=== PATIENT | female | born 1985 | race Caucasian/White ===

== ENCOUNTER 2017-04-08 00:27 | Emergency (ER) | payer OTHER ==
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
[2017-04-08 01:47] VITALS: BP 126/58; PULSE 83; RESP 16; TEMP 98
== END 2017-04-08 01:58 | disposition home or self-care (01) ==
LOC: EC 00:27
DX: O9A.211 Injury, poisoning and certain other consequences of external causes complicating pregnancy, first trimester (principal); S01.81XA Laceration without foreign body of other part of head, initial encounter; O99.331 Smoking (tobacco) complicating pregnancy, first trimester; F17.200 Nicotine dependence, unspecified, uncomplicated; Z3A.10 10 weeks gestation of pregnancy; Z79.899 Other long term (current) drug therapy; X99.1XXA Assault by knife, initial encounter; Y92.008 Other place in unspecified non-institutional (private) residence as the place of occurrence of the external cause
CPT/HCPCS: 12013; 99284

== ENCOUNTER → 2017-06-28 | Outpatient (CLI) | payer OTHER ==
[2017-06-28 12:02] LABS: CH 30.5; CHCM 33.8; HCT 36.2 % (34.0-46.0); HDW 2.32; HGB 12.8 gm/dL (11.4-16.0); MCH 31.9 pg (25.0-35.0); MCHC 35.2 g/dL (31.0-37.0); MCV 90.4 fL (80.0-100.0); Mean Platelet Volume 7.8; RBC 4.01 m/uL (3.80-5.40); RDW 12.8 % (11.5-15.5); WBC 10.2 k/uL (3.8-10.6)
[2017-06-28 12:04] LABS: Glucose 125 mg/dL (74-99); Non-African American GFR(MDRD) >60 (>60 ml/min/1.73 sqM)
[2017-06-28 12:36] LABS: Hepatitis B Surface Ag Index 0.06
[2017-06-28 15:44] LABS: Treponemal Ab Non-Reactive (Non-Reactive)
[2017-06-29 05:19] LABS: Toxoplasma Antibody (IgG) <3.0 IU/mL (<7.2)
[2017-06-29 08:21] LABS: Alpha Fetoprotein 34.1 ng/mL; B-HCG (M.O.M.) 0.82; Gestational Age (days) 3; Human Chorionic Gonadotropin 12.6 IU/mL; Inhibin A (M.O.M.) 1.02; Interpretation SeeBelow; Maternal Age at EDD (Yrs) 32; Smoker Yes; Unconjugated Estriol (M.O.M.) 0.93
== END | disposition home or self-care (01) ==
LOC: LABWHC1 10:54
PROVIDERS: ATTEND Obstetrics & Gynecology
DX: Z34.82 Encounter for supervision of other normal pregnancy, second trimester (principal)
CPT/HCPCS: 36415; 82105; 82565; 82677; 82947; 84702; 85027; 86336; 86762; 86777; 86778; 86780; 86850; 86900; 86901; 87340; 87390

== ENCOUNTER 2017-10-21 18:25 | Outpatient (CLI) | payer OTHER ==
[2017-10-21 18:40] VITALS: BP 122/66; PULSE 84; TEMP 97.9
[2017-10-21 19:13] VITALS: RESP 16
[2017-10-21] MEDS ORDERED: BETAMET ACET-BETAMETH SOD PHOS 6 MG/ML VIAL IM SCH (20:15)
[2017-10-21] MEDS ORDERED: MAGNESIUM SULFATE WATER PMX IVPB STA ×2 (20:18→20:56)
[2017-10-21] MEDS ORDERED: WATER FOR INJECTION IVPB STA ×2 (20:18→20:56)
--- NOTE | 2017-10-21 20:39 | P.TRANS ---
Providers Expected date of discharge: 10/21/17 Attending physician: Cj Moeller Primary care physician: Stated None Hospital Course: Darin is a 32-year-old at 33 weeks 6 days gestation arrives to labor and delivery complaining of contractions. She spoke with me earlier in the afternoon and I advised her to go to labor and delivery immediately. She reports that she do her work and proceeded to go to her job. [employer] came to labor and delivery michael every 2-3 minutes dilated to 2 cm 80% effaced and a fibronectin was ordered. This returned a positive result and on reexamination about 60-90 minutes later she was dilated to have 80% effaced and -2 station. Teased michael every few minutes. IV has been started and a 6 g bolus of magnesium sulfate will be given with a 2 g maintenance dose started. We'll plan transfer for her to [facility] for labor. She denies rupture membranes heart tones in the 130s to 140s and are reactive. Her past medical history is otherwise unremarkable past surgical history none. ALLERGIES none. Social history is is significant for half pack per day tobacco abuse she denies alcohol or illicit drug use. Family history is nonicteric.. Her course is, K by gestational diabetes she is at A2 gestational diabetic using insulin only at night. Reason for transfer risks and benefits were discussed with patient in detail and all questions are answered for her at this time. We'll plan transfer of care and have MFM make further decisions regarding her care. Patient Condition at Discharge: Stable Plan - Transfer Summary Transfer Medications: Active Medications Generic Name Dose Route Start Last Admin Trade Name Rowena PRN Reason Stop Dose Admin Betamethasone Acet/Betameth SodPhos 12 mg 10/21/17 20:15 10/21/17 20:32 Celestone Soluspan IM 10/22/17 20:16 12 mg Q24H BORA Administration Magnesium Sulfate 6 gm/ IV 75 mls @ 25 mls/hr 10/21/17 20:18 Solution IVPB 10/21/17 22:17 ONCE STA
[2017-10-21] MEDS ORDERED: MAGNESIUM SULFATE MG 6,000 MG in SODIUM CHLORIDE 0.9% 50 ML IVPB ONE (20:49)
[2017-10-21] MEDS ORDERED: MAGNESIUM SULFATE-WATER PMX 20 GM in WATER FOR INJECTION 1 500ML.BAG IV SCH (21:00)
[2017-10-21] MEDS ORDERED: LACTATED RINGERS 1,000 ML IV SCH (21:00)
== END 2017-10-21 21:51 | disposition short-term general hospital (02) ==
LOC: FBPOP 18:25
PROVIDERS: ATTEND Obstetrics & Gynecology
DX: O60.03 Preterm labor without delivery, third trimester (principal); Z3A.33 33 weeks gestation of pregnancy; O24.414 Gestational diabetes mellitus in pregnancy, insulin controlled
CPT/HCPCS: 59025; 96361; 96365; 96366; 96372; 84112; 82731; G0463; J0702; J3475 ×2; 99215

== ENCOUNTER 2017-12-10 20:48 | Emergency (ER) | payer OTHER ==
--- NOTE | 2017-12-10 21:08 | ED ---
General Adult HPI - General Chief complaint: Chest Pain Stated complaint: chest pain Time Seen by Provider: 12/10/17 20:53 Source: patient, RN notes reviewed, old records reviewed Mode of arrival: ambulatory Limitations: no limitations - History of Present Illness Initial comments: this patient is a 32-year-old female presents emergency Department with sudden onset of substernal epigastric and chest pain for the past 30 minutes. She reports this occurred while she was walking around the grocery store and hit her suddenly. She states that she had a child approximately one month ago. She denies any other major medical history besides a hiatal hernia repair. She reports that this pain seems different than GERD. She states that it is worse with palpation over epigastric region. Patient states that she has no recent fever or chills. Denies any other abnormal symptoms. - Related Data Home Medications Medication Instructions Recorded Confirmed Vit No.124/Iron/Folic 1 tab PO DAILY 05/05/15 12/10/17 [ Vitamin Tablet] Previous Rx's Medication Instructions Recorded Ibuprofen [Motrin] 600 mg PO Q6HR PRN #60 tab 10/27/17 Acetaminophen-Codeine 300-30mg 1 tab PO Q4H PRN #15 tablet 12/11/17 [Tylenol #3] Ibuprofen [Motrin] 600 mg PO Q8HR PRN #20 tab 12/11/17 Ondansetron Odt [Zofran Odt] 4 mg PO Q8HR PRN #12 tab 12/11/17 Allergies Allergy/AdvReac Type Severity Reaction Status Date / Time No Known Allergies Allergy Verified 12/10/17 20:59 Review of Systems ROS Statement: Those systems with pertinent positive or pertinent negative responses have been documented in the HPI. ROS Other: All systems not noted in ROS Statement are negative. Past Medical History Past Medical History: Asthma, Cancer, GERD/Reflux Additional Past Medical History / Comment(s): ovarian cancer - now in remission History of Any Multi-Drug Resistant Organisms: None Reported Past Surgical History: Hernia Repair Additional Past Surgical History / Comment(s): laproscopic surgery for ovarian CA, hiatal hernia Past Anesthesia/Blood Transfusion Reactions: Previous Problems w/ Anesthesia Additional Past Anesthesia/Blood Transfusion Reaction / Comment(s): had bronchial spasm- surgery canceled after intubation due to low o2 sats, Dr KIERAR Lugo cleared but recomended to have steroids prior to surgery per pt Past Psychological History: No Psychological Hx Reported Smoking Status: Current every day smoker Past Alcohol Use History: None Reported Past Drug Use History: None Reported - Past Family History Mother Family Medical History: Hypertension General Exam - General Exam Comments Initial Comments: this patient is a 32-year-old female. Patient appears to be in moderate discomfort. Limitations: no limitations General appearance: alert, in no apparent distress Head exam: Present: atraumatic, normocephalic, normal inspection Eye exam: Present: normal appearance, PERRL, EOMI. Absent: scleral icterus, conjunctival injection, periorbital swelling ENT exam: Present: normal exam, mucous membranes moist Neck exam: Present: normal inspection. Absent: tenderness, meningismus, lymphadenopathy Respiratory exam: Present: normal lung sounds bilaterally. Absent: respiratory distress, wheezes, rales, rhonchi, stridor Cardiovascular Exam: Present: regular rate, normal rhythm, normal heart sounds. Absent: systolic murmur, diastolic murmur, rubs, gallop, clicks GI/Abdominal exam: Present: soft, tenderness (epigastric tenderness.), normal bowel sounds. Absent: distended, guarding, rebound, rigid Extremities exam: Present: normal inspection, full ROM, normal capillary refill. Absent: tenderness, pedal edema, joint swelling, calf tenderness Back exam: Present: normal inspection Neurological exam: Present: alert, oriented X3, CN II-XII intact Psychiatric exam: Present: normal affect, normal mood Skin exam: Present: warm, dry, intact, normal color. 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 Patient is given IV fluids and pain medicine. Patient recently had told one month ago. No fevers or chills. At this time patient has an elevated lipase of 700. I discussed these findings with her. She states she does not drink alcohol. Patient from likely due to gallbladder etiology. CT was performed and shows no evidence of any significant changes besides hiatal hernia. Patient's cardiac workup including EKG and cardiac enzymes are all negative. I did complete a right upper quadrant ultrasound. There is multiple gallstones. I do believe the patient's pain was related to passing gallstones. She reports that she is feeling better after receiving Toradol. I discussed case with Dr. Ellis. We did offer the patient admission. She says that her pain is diminished at this time she would like to go home. I discussed that she has a gallstone associated pancreatitis, discussed that she should see a surgeon. I will give the patient a short course of pain medicine and referral to pain surgeon. She has seen Dr. Marks for her hiatal hernia in the past. Dr. Marks is on-call today. I discussed that she should have a clear liquid diet and return parameters were discussed. Patient agrees if she has any fever, worsening pain or unable to tolerate fluid she will return to the emergency department at once. - Lab Data Result diagrams: 12/10/17 21:09 12/10/17 21:09 Lab Results 12/10/17 12/10/17 12/10/17 Range/Units 21:09 21:09 21:09 WBC 8.1 (3.8-10.6) k/uL RBC 4.61 (3.80-5.40) m/uL Hgb 13.9 (11.4-16.0) gm/dL Hct 41.7 (34.0-46.0) % MCV 90.5 (80.0-100.0) fL MCH 30.1 (25.0-35.0) pg MCHC 33.3 (31.0-37.0) g/dL RDW 12.7 (11.5-15.5) % Plt Count 217 (150-450) k/uL Neutrophils % 53 % Lymphocytes % 37 % Monocytes % 5 % Eosinophils % 3 % Basophils % 1 % Neutrophils # 4.3 (1.3-7.7) k/uL Lymphocytes # 3.0 (1.0-4.8) k/uL Monocytes # 0.4 (0-1.0) k/uL Eosinophils # 0.2 (0-0.7) k/uL Basophils # 0.0 (0-0.2) k/uL PT (9.0-12.0) sec INR (<1.2) APTT (22.0-30.0) sec Sodium 143 (137-145) mmol/L Potassium 4.0 (3.5-5.1) mmol/L Chloride 105 (98-107) mmol/L Carbon Dioxide 26 (22-30) mmol/L Anion Gap 12 mmol/L BUN 16 (7-17) mg/dL Creatinine 0.70 (0.52-1.04) mg/dL Est GFR (MDRD) Af Amer >60 (>60 ml/min/1.73 sqM) Est GFR (MDRD) Non-Af >60 (>60 ml/min/1.73 sqM) Glucose 87 (74-99) mg/dL Calcium 9.7 (8.4-10.2) mg/dL Magnesium 1.8 (1.6-2.3) mg/dL Total Bilirubin 0.5 (0.2-1.3) mg/dL AST 28 (14-36) U/L ALT 35 (9-52) U/L Alkaline Phosphatase 66 (38-126) U/L Total Creatine Kinase 48 (30-135) U/L CK-MB (CK-2) 0.4 (0.0-2.4) ng/mL CK-MB (CK-2) Rel Index 0.8 Troponin I <0.012 (0.000-0.034) ng/mL Total Protein 7.0 (6.3-8.2) g/dL Albumin 4.1 (3.5-5.0) g/dL Amylase 79 (30-110) U/L Lipase 704 H (23-300) U/L Urine Color Urine Appearance (Clear) Urine pH (5.0-8.0) Ur Specific [place] (1.001-1.035) Urine Protein (Negative) Urine Glucose (UA) (Negative) Urine Ketones (Negative) Urine Blood (Negative) Urine Nitrite (Negative) Urine Bilirubin (Negative) Urine Urobilinogen (<2.0) mg/dL Ur Leukocyte Esterase (Negative) Urine RBC (0-5) /hpf Urine WBC (0-5) /hpf Ur Squamous Epith Cells (0-4) /hpf Urine Mucus (None) /hpf 12/10/17 12/10/17 Range/Units 21:09 22:28 WBC (3.8-10.6) k/uL RBC (3.80-5.40) m/uL Hgb (11.4-16.0) gm/dL Hct (34.0-46.0) % MCV (80.0-100.0) fL MCH (25.0-35.0) pg MCHC (31.0-37.0) g/dL RDW (11.5-15.5) % Plt Count (150-450) k/uL Neutrophils % % Lymphocytes % % Monocytes % % Eosinophils % % Basophils % % Neutrophils # (1.3-7.7) k/uL Lymphocytes # (1.0-4.8) k/uL Monocytes # (0-1.0) k/uL Eosinophils # (0-0.7) k/uL Basophils # (0-0.2) k/uL PT 9.8 (9.0-12.0) sec INR 1.0 (<1.2) APTT 24.2 (22.0-30.0) sec Sodium (137-145) mmol/L Potassium (3.5-5.1) mmol/L Chloride (98-107) mmol/L Carbon Dioxide (22-30) mmol/L Anion Gap mmol/L BUN (7-17) mg/dL Creatinine (0.52-1.04) mg/dL Est GFR (MDRD) Af Amer (>60 ml/min/1.73 sqM) Est GFR (MDRD) Non-Af (>60 ml/min/1.73 sqM) Glucose (74-99) mg/dL Calcium (8.4-10.2) mg/dL Magnesium (1.6-2.3) mg/dL Total Bilirubin (0.2-1.3) mg/dL AST (14-36) U/L ALT (9-52) U/L Alkaline Phosphatase (38-126) U/L Total Creatine Kinase (30-135) U/L CK-MB (CK-2) (0.0-2.4) ng/mL CK-MB (CK-2) Rel Index Troponin I (0.000-0.034) ng/mL Total Protein (6.3-8.2) g/dL Albumin (3.5-5.0) g/dL Amylase (30-110) U/L Lipase (23-300) U/L Urine Color Yellow Urine Appearance Clear (Clear) Urine pH 6.5 (5.0-8.0) Ur Specific [place] 1.023 (1.001-1.035) Urine Protein Trace H (Negative) Urine Glucose (UA) Negative (Negative) Urine Ketones Negative (Negative) Urine Blood Negative (Negative) Urine Nitrite Negative (Negative) Urine Bilirubin Negative (Negative) Urine Urobilinogen 2.0 (<2.0) mg/dL Ur Leukocyte Esterase Trace H (Negative) Urine RBC 1 (0-5) /hpf Urine WBC 2 (0-5) /hpf Ur Squamous Epith Cells 9 H (0-4) /hpf Urine Mucus Occasional H (None) /hpf 12/10/17 21:19 EKG performed at 2109 shows normal sinus rhythm, normal EKG noted. Ventricular rate of 69 bpm. RI interval 190 ms. QRS ration 102 Mita's hands. QT QTc is 46/ 435 [place]. Noticed this elevation or T-wave inversion. No evidence of ventricular ventricular arrhythmias. - Radiology Data Radiology results: report reviewed CT head and pelvis shows no evidence of any acute abnormalities besides a large hiatal hernia. Gallbladder ultrasound shows multiple small gallstones. No evidence of choledocholithiasis. Pancreas appears within normal limits. Disposition Clinical Impression: Gallstone pancreatitis Disposition: HOME SELF-CARE Condition: Good Instructions: Gallstones (ED) Additional Instructions: patient advised to follow-up with on-call surgeon and primary care physician. Clear liquid diet. Patient is to return if there is any fevers, severe abdominal pain or unable to tolerate any fluids. Return to emergency department if any alarming signs or symptoms occur. Prescriptions: Acetaminophen-Codeine 300-30mg [Tylenol #3] 1 tab PO Q4H PRN #15 tablet PRN Reason: Pain Ibuprofen [Motrin] 600 mg PO Q8HR PRN #20 tab PRN Reason: Pain Ondansetron Odt [Zofran Odt] 4 mg PO Q8HR PRN #12 tab PRN Reason: Nausea Referrals: None,Stated [REFERRING] - 1-2 days Ryan Marks MD [STAFF PHYSICIAN] - 1-2 days Time of Disposition: 00:04
[2017-12-10] MEDS: HYDROmorphone 0.5 MG/0.5 ML SYRINGE IVP STA ×2 (21:21→22:32)
[2017-12-10] MEDS ORDERED: ONDANSETRON 4 MG/2 ML VIAL IVP STA (21:24)
[2017-12-10 21:33] LABS: Basophils % (A) 1 %; Eosinophils # (A) 0.2 k/uL (0-0.7); Eosinophils % (A) 3 %; HCT 41.7 % (34.0-46.0); HGB 13.9 gm/dL (11.4-16.0); Lymphocytes % (A) 37 %; MCH 30.1 pg (25.0-35.0); MCHC 33.3 g/dL (31.0-37.0); MCV 90.5 fL (80.0-100.0); Mean Platelet Volume 7.8; Monocytes # (A) 0.4 k/uL (0-1.0); Monocytes % (A) 5 %; Neutrophils # (A) 4.3 k/uL (1.3-7.7); Neutrophils % (A) 53 %; Platelet Count 217 k/uL (150-450); RBC 4.61 m/uL (3.80-5.40); RDW 12.7 % (11.5-15.5); WBC 8.1 k/uL (3.8-10.6)
[2017-12-10 21:42] LABS: Partial Thromboplastin Time 24.2 sec (22.0-30.0); Prothrombin Time 9.8 sec (9.0-12.0)
[2017-12-10 21:55] LABS: ALT 35 U/L (9-52); AST 28 U/L (14-36); Albumin 4.1 g/dL (3.5-5.0); Alkaline Phosphatase 66 U/L (38-126); Amylase 79 U/L (30-110); Anion Gap 12 mmol/L; Blood Urea Nitrogen 16 mg/dL (7-17); Calcium 9.7 mg/dL (8.4-10.2); Carbon Dioxide 26 mmol/L (22-30); Chloride 105 mmol/L (98-107); Glucose 87 mg/dL (74-99); Lipase 704 U/L (23-300); Magnesium 1.8 mg/dL (1.6-2.3); Sodium 143 mmol/L (137-145); Total Bilirubin 0.5 mg/dL (0.2-1.3)
[2017-12-10 21:59] LABS: Creatine Kinase 48 U/L (30-135)
--- NOTE | 2017-12-10 22:09 | XR ---
EXAMINATION TYPE: XR chest 2V DATE OF EXAM: 12/10/2017 COMPARISON: 05/07/2015 INDICATION: Chest pain TECHNIQUE: Frontal and lateral views of the chest are obtained. FINDINGS: The heart size is normal. The pulmonary vasculature is normal. The lungs are clear. IMPRESSION: 1. No acute pulmonary process.
[2017-12-10 22:11] LABS: Creatine Kinase MB 0.4 ng/mL (0.0-2.4); Troponin I <0.012 ng/mL (0.000-0.034)
[2017-12-10] MEDS ORDERED: RX INFO: IV CONTRAST WAS GIVEN 1 EACH MISC MISCELLANE PRN (22:24)
[2017-12-10] MEDS ORDERED: KETOROLAC 30 MG/ML 1 ML VIAL IVP STA (22:30)
[2017-12-10 22:47] LABS: Appearance,Urine Clear (Clear); Bilirubin,Urine Negative (Negative); Blood,Urine Negative (Negative); Color,Urine Yellow; Glucose,Urine (UA) Negative (Negative); Ketones,Urine Negative (Negative); Leukocyte Esterase,Urine Trace (Negative); Mucus,Urine Occasional /hpf; Nitrite,Urine Negative (Negative); PH, Urine 6.5 (5.0-8.0); Protein,Urine Trace (Negative); RBC,Urine 1 /hpf (0-5); Specific Gravity,Urine 1.023 (1.001-1.035); Squamous Epithelial Cell,Urine 9 /hpf (0-4); WBC,Urine 2 /hpf (0-5)
--- NOTE | 2017-12-10 23:25 | CT ---
EXAMINATION TYPE: CT abdomen pelvis w con DATE OF EXAM: 12/10/2017 COMPARISON: NONE HISTORY: RUQ, epigastric pain CT DLP: 1710.80 mGycm Automated exposure control for dose reduction was used. TECHNIQUE: Helical acquisition of images was performed from the lung bases through the pelvis. CONTRAST: Performed without Oral Contrast and with IV Contrast, patient injected with 100 mL of Omnipaque 300. FINDINGS: Lung bases are clear. There is no pleural effusion. There is moderate hiatal hernia noted. There are surgical clips at the gastric fundus. Liver spleen pancreas gallbladder appear normal. Bile ducts are not dilated. There is no adrenal mass. Kidneys show satisfactory contrast opacification. There is no hydronephrosi s. There is no retroperitoneal adenopathy. There is no ascites. Bladder distends smoothly. There is n o sign of appendicitis. There is no evidence of a pelvic mass. Uterus is anteverted. Bony structures are intact. I see no intestinal wall thickening. There are no dilated loops. IMPRESSION: MODERATE-SIZED HIATAL HERNIA. OTHERWISE NEGATIVE CT SCAN OF THE ABDOMEN AND PELVIS.
--- NOTE | 2017-12-10 23:44 | US ---
EXAMINATION TYPE: US gallbladder DATE OF EXAM: 12/10/2017 COMPARISON: NONE CLINICAL HISTORY: Pain. EXAM MEASUREMENTS: Liver Length: 20.6 cm Gallbladder Wall: 0.2 cm CBD: 0.3 cm Right Kidney: 11.8 x 5.0 x 5.5 cm Limited due to bowel gas. Pancreas: wnl Liver: measures large Gallbladder: Lumen has multiple echogenic shadowing foci and debris likely cholelithiasis with sludg e Evidence for sonographic López's sign: No CBD: wnl Right Kidney: wnl IMPRESSION: There are numerous gallstones. No dilated ducts. No gallbladder wall thickening.
[2017-12-10 23:51] VITALS: BP 116/68; PULSE 74; RESP 18; TEMP 97.1
== END 2017-12-11 00:15 | disposition home or self-care (01) ==
LOC: EC 20:48
DX: K85.10 Biliary acute pancreatitis without necrosis or infection (principal); K44.9 Diaphragmatic hernia without obstruction or gangrene; R74.8 Abnormal levels of other serum enzymes; R07.9 Chest pain, unspecified; F17.200 Nicotine dependence, unspecified, uncomplicated; Z79.899 Other long term (current) drug therapy; Z85.43 Personal history of malignant neoplasm of ovary; Z98.890 Other specified postprocedural states; Z82.49 Family history of ischemic heart disease and other diseases of the circulatory system; Z53.20 Procedure and treatment not carried out because of patient's decision for unspecified reasons
CPT/HCPCS: 36415; 93005; 80053; 82150; 82550; 82553; 83690; 83735; 84484; 85025; 85610; 85730; 81001; 71046; 76705; 74177; 99285; 96374; J1885; Q9967

== ENCOUNTER → 2017-12-18 | Outpatient (CLI) | payer OTHER ==
--- NOTE | 2017-12-18 15:42 | US ---
EXAMINATION TYPE: US pelvic complete DATE OF EXAM: 12/18/2017 COMPARISON: Ultrasound 11/04/[address] 12/10/2017 CLINICAL HISTORY: 32-year-old female N83.20 Previous Rt Ovarian Cyst. TECHNIQUE: Transabdominal (TA) Date of LMP: Patient one month post , no regular menses yet Findings: Uterus: Anteverted measuring 8.7 x 4.8 x 6.8 cm Endometrial Stripe: 0.8 cm Right Ovary: 2.4 x 1.7 x 2.0 cm for a volume of 4.3 mL. Left Ovary: 3.6 x 2.8 x 2.8 cm for a volume of 14.8 mL. No ovarian cyst is identified. No evident adnexal abnormality or cul-de-sac free fluid. IMPRESSION: No specific abnormality of the pelvis on transabdominal scanning.
== END | disposition home or self-care (01) ==
LOC: RADUSWWP 13:28
PROVIDERS: ATTEND Obstetrics & Gynecology
DX: Z09 Encounter for follow-up examination after completed treatment for conditions other than malignant neoplasm (principal); Z87.42 Personal history of other diseases of the female genital tract
CPT/HCPCS: 76856

== ENCOUNTER 2017-12-25 09:21 | Day surgery (SDC) | payer OTHER ==
[2017-12-20 16:09] VITALS: BMI 33.9
[~2017-12-25 09:21] MED LIST: DEXAMETHASONE SOD PHOSPHATE 10 MG/ML 1 ML VIAL IV ONE; HEPARIN SODIUM,PORCINE 5,000 UNIT/ML 1 ML VIAL SQ ONE; HYDROmorphone 0.5 MG/0.5 ML SYRINGE IVP PRN; ONDANSETRON 4 MG/2 ML VIAL IVP ONE; ceFAZolin IN SWFI 2 GM/20 ML SYRINGE IVP ONE
[2017-12-25] MEDS ORDERED: LIDOCAINE 1% 20 ML VIAL (10MG/ML) FOR IV START INTRADERMA ONE (09:57)
[2017-12-25] MEDS ORDERED: LACTATED RINGERS 1,000 ML IV ONE (09:58)
--- NOTE | 2017-12-25 11:19 | P.GSHP ---
History of Present Illness H&P Date: 12/25/17 Chief Complaint: Right upper quadrant pain This is a 32-year-old female who said complaints pain. Workup found have evidence of lithiasis patient presents today for laparoscopic cholecystectomy. Past Medical History Past Medical History: Asthma, Cancer, GERD/Reflux Additional Past Medical History / Comment(s): STATES "BORDERLINE ASTHMA", HX OF OVARIAN TUMOR CANCER., HX OF GERD & HIATAL HERNIA WITH SURGERY., GESTATIONAL DIABETES., DDD, HERNIATED DISCS & SCIATICA- STATES PAINFUL TO LIE FLAT., BABY BORN 10/26/17. History of Any Multi-Drug Resistant Organisms: None Reported Past Surgical History: Hernia Repair Additional Past Surgical History / Comment(s): laproscopic surgery for ovarian CA, hiatal hernia, Miscarriage with D&C, egd. Past Anesthesia/Blood Transfusion Reactions: Previous Problems w/ Anesthesia Additional Past Anesthesia/Blood Transfusion Reaction / Comment(s): bronchial spasm- surgery (ezekiel fundoplication04/2015) canceled after intubation due to low o2 sats. Past Psychological History: No Psychological Hx Reported Smoking Status: Light tobacco smoker Past Alcohol Use History: None Reported Additional Past Alcohol Use History / Comment(s): SMOKES APPROX 7 CIGARETTES / DAY. SMOKING SINCE 18 YEARS OLD Past Drug Use History: None Reported - Past Family History Mother Family Medical History: Hypertension Medications and Allergies Home Medications Medication Instructions Recorded Confirmed Type Ibuprofen [Motrin] 600 mg PO Q8HR PRN #20 tab 12/11/17 12/20/17 Rx Acetaminophen-Codeine 300-30mg 1 tab PO Q4-6H PRN 12/20/17 12/20/17 History [Tylenol #3] Inhaler (Unknown Name ) 1 dose INHALATION DIRECTED PRN 12/20/17 12/25/17 History Allergies Allergy/AdvReac Type Severity Reaction Status Date / Time No Known Allergies Allergy Verified 12/20/17 15:51 Surgical - Exam Vital Signs Temp Pulse Resp BP Pulse Ox 98.2 F 78 18 111/79 99 12/25/17 09:43 12/25/17 09:43 12/25/17 09:43 12/25/17 09:43 12/25/17 09:43 - General well developed, no distress - Eyes PERRL - ENT normal pinna - Neck no masses - Respiratory normal expansion - Cardiovascular Rhythm: regular - Abdomen Abdomen: soft, non tender Assessment and Plan Assessment: Cholelithiasis, chronic cholecystitis We'll perform laparoscopic cholecystectomy.
[2017-12-25] MEDS ORDERED: NEOSTIGMINE 1 MG/ML 10 ML VIAL ONE (11:38)
[2017-12-25] MEDS ORDERED: KETOROLAC 30 MG/ML 1 ML VIAL ONE (11:38)
[2017-12-25] MEDS ORDERED: MIDAZOLAM 2 MG/2 ML VIAL ONE (11:38)
[2017-12-25] MEDS ORDERED: PROPOFOL 10 MG/ML 20 ML VIAL IV ONE (11:38)
[2017-12-25] MEDS ORDERED: HYDROmorphone (PF) 1 MG/ML ONE (11:38)
[2017-12-25] MEDS ORDERED: fentaNYL (PF) 50 MCG/ML 2 ML AMP ONE (11:38)
[2017-12-25] MEDS ORDERED: LIDOCAINE 1% INJ 10MG/ML (20 ML MDV) ONE (11:38)
[2017-12-25] MEDS ORDERED: ROCURONIUM BROMIDE 10 MG/ML 10 ML VIAL IV ONE (11:38)
[2017-12-25] MEDS ORDERED: GLYCOPYRROLATE 0.2 MG/ML 2 ML VIAL ONE (11:38)
[2017-12-25] MEDS ORDERED: SUCCINYLCHOLINE CHLORIDE 100 MG/5 ML SYR IV ONE (11:38)
[2017-12-25] MEDS ORDERED: BUPIVACAINE (PF) 0.5% 30 ML VIAL SQ ONE (11:58)
[2017-12-25 12:39] VITALS: TEMP 97
[2017-12-25] MEDS: LACTATED RINGERS 1,000 ML IV SCH ×2 (12:45→13:22)
--- NOTE | 2017-12-25 12:47 | P.OP ---
Date of Procedure: 12/25/17 Preoperative Diagnosis: Cholelithiasis Postoperative Diagnosis: Cholelithiasis Procedure(s) Performed: Laparoscopic cholecystectomy Anesthesia: EVELINE Surgeon: Ryan Pedroza Estimated Blood Loss (ml): 5 Pathology: other (Gallbladder) Condition: stable Disposition: PACU Description of Procedure: The patient was placed on the operating table. The patient received a general endotracheal tube anesthesia. The patients abdomen was prepped and draped in the usual sterile fashion. Through an infraumbilical stab incision, the fascia of the anterior abdominal wall was grasped with a pair of Kochers and then the Veress needle was placed in the peritoneal cavity. Position of the Veress needle was confirmed with positive drop test. The abdomen was then insufflated. After adequate insufflation, the 10 mm trocar was placed in the peritoneal cavity. Following this the laparoscope was placed in the peritoneal cavity. The patient was placed in the head-up, right side up position and then a 5 mm trocar was placed in the right lateral and right subcostal position under direct visualization. A 8 mm trocar was placed in the epigastric position. The gallbladder was grasped in the fundus and infundibulum. Traction on the gallbladder was placed in the lateral and the cephalad positions. The triangle of Calot was visualized.. The cystic duct was bluntly dissected until the union of the cystic duct and common bile duct was seen. The cystic duct was then divided and sealed with the Harmonic scissors. A PDS Endoloop was then placed throughout the cystic duct stump. The cystic artery divided and sealed with the Harmonic scissors. The gallbladder was then removed from the liver bed using Harmonic scissors. The gallbladder was then extracted through the epigastric port site. Operative field was checked for any bleeding spots and Harmonic scissors was used to coagulate the liver bed. The abdomen was irrigated. The trocars were removed. The skin was closed using interrupted 3-0 Vicryl suture. Dermabond dressing were applied. The patient tolerated the procedure well.
[2017-12-25 12:53] VITALS: RESP 16
[2017-12-25] MEDS ORDERED: HYDROcodone/APAP 7.5-325MG 1 EACH TAB PO ONE (13:48)
[2017-12-25 14:17] VITALS: BP 127/82; PULSE 57
== END 2017-12-25 14:41 | disposition home or self-care (01) ==
LOC: OR 09:21
PROVIDERS: ATTEND Surgery
DX: K80.10 Calculus of gallbladder with chronic cholecystitis without obstruction (principal); K21.9 Gastro-esophageal reflux disease without esophagitis; J45.909 Unspecified asthma, uncomplicated; F17.210 Nicotine dependence, cigarettes, uncomplicated; Z85.43 Personal history of malignant neoplasm of ovary
CPT/HCPCS: 81025; 88304; 47562; J2250; J1644; J1100; J2710; J2405; J2001; J3010; J1885; J1170; J0330; J2704; J0690

== ENCOUNTER → 2018-09-28 | Outpatient (CLI) | payer OTHER ==
--- NOTE | 2018-09-28 12:22 | CT ---
EXAMINATION TYPE: CT abdomen pelvis wo con DATE OF EXAM: 09/28/2018 HISTORY: Rt Quad pain for 6 wks, history of cholecystectomy earlier this year. CT DLP: 1149 mGycm. Automated Exposure Control for Dose Reduction was Utilized. TECHNIQUE: CT scan of the abdomen and pelvis is performed without oral or IV contrast. COMPARISON: CT abdomen and pelvis December 10, 2017 FINDINGS: Within the limitations of a non-contrast study, the following observations are made. LUNG BASES: No significant abnormality is appreciated. LIVER/GB: Gallbladder is now not visualized suspect interval cholecystectomy. There are however 2 hyp erdense foci could reflect new clips or calculi in cystic duct remnant coronal images 30 and 31. No s ignificant inflammatory changes noted at this level. No intrahepatic or extrahepatic ductal dilatatio n is seen. Posterior superior right hepatic lobe is heterogeneously hypodense consistent with fatty i nfiltration. PANCREAS: No significant abnormality is seen. SPLEEN: No significant abnormality is seen. ADRENALS: No significant abnormality is seen. KIDNEYS: No significant abnormality is seen. BOWEL: Surgical changes just above diaphragmatic hiatus with persistent moderate to large size hiatal hernia is redemonstrated. There is no suspicious small or large bowel dilatation. GENITAL ORGANS: A 2.2 cm low dense lesion posterior left ovary axial image 70 could reflect prominent follicle or simple small ovarian cyst. LYMPH NODES: No greater than 1cm abdominal or pelvic lymph nodes are appreciated. OSSEOUS STRUCTURES: Transitional-type vertebra at lumbosacral junction is redemonstrated. OTHER: No significant additional abnormality is seen. IMPRESSION: Interval cholecystectomy, suspect small surgical clips at level of gallbladder fossa vers us 2 new small calculi in prominent cystic duct remnant, correlation with surgical operative note is advised. No suspicious acute finding otherwise seen to account for patient's symptoms.
== END ==
LOC: RADCTMAIN 10:37
PROVIDERS: ATTEND Family Medicine
DX: R10.9 Unspecified abdominal pain (principal); Z90.49 Acquired absence of other specified parts of digestive tract
CPT/HCPCS: 74176

== ENCOUNTER 2018-11-05 06:57 | Day surgery (SDC) | payer OTHER ==
[2018-10-31 14:37] VITALS: BMI 32.8
[~2018-11-05 06:57] MED LIST changes: -DEXAMETHASONE SOD PHOSPHATE 10 MG/ML 1 ML VIAL IV ONE; -HEPARIN SODIUM,PORCINE 5,000 UNIT/ML 1 ML VIAL SQ ONE; -HYDROmorphone 0.5 MG/0.5 ML SYRINGE IVP PRN; +LACTATED RINGERS 1,000 ML IV SCH; +LIDOCAINE 1% 20 ML VIAL (10MG/ML) FOR IV START INTRADERMA PRN; -ONDANSETRON 4 MG/2 ML VIAL IVP ONE; -ceFAZolin IN SWFI 2 GM/20 ML SYRINGE IVP ONE
[2018-11-05 07:13] VITALS: TEMP 97.9
[2018-11-05] MEDS ORDERED: PROPOFOL 10 MG/ML 20 ML VIAL IV ONE (07:42)
[2018-11-05] MEDS ORDERED: MIDAZOLAM 2 MG/2 ML VIAL ONE (07:42)
[2018-11-05] MEDS ORDERED: fentaNYL (PF) 50 MCG/ML 2 ML AMP ONE (07:42)
--- NOTE | 2018-11-05 07:55 | P.GSHP ---
History of Present Illness H&P Date: 11/05/18 Chief Complaint: GI bleed This is a 30-year-old female history of GI bleed. Patient presents today for colonoscopy. Past Medical History Past Medical History: Asthma, Cancer, GERD/Reflux Additional Past Medical History / Comment(s): ovarian cancer - now in remission , HIATAL HERNIA. CURRENTLY HAS CYST TO LT OVARY. HAS BEEN HAVING BLOOD IN STOOL OFF AND ON FOR PAST 6 MONTHS History of Any Multi-Drug Resistant Organisms: None Reported Past Surgical History: Cholecystectomy, Hernia Repair Additional Past Surgical History / Comment(s): laproscopic surgery for ovarian CA, hiatal hernia repair,. COLONOSCOPY. D & C. CYST REMOVED FROM RT OVARY Past Anesthesia/Blood Transfusion Reactions: Previous Problems w/ Anesthesia Additional Past Anesthesia/Blood Transfusion Reaction / Comment(s): had bronchial spasm- surgery canceled after intubation due to low o2 sats, Smoking Status: Current every day smoker - Past Family History Mother Family Medical History: Hypertension Medications and Allergies Home Medications Medication Instructions Recorded Confirmed Type No Known Home Medications 10/31/18 11/05/18 History Allergies Allergy/AdvReac Type Severity Reaction Status Date / Time No Known Allergies Allergy Verified 10/31/18 14:32 Surgical - Exam Vital Signs Temp Pulse Resp BP Pulse Ox 97.9 F 89 20 121/64 96 11/05/18 07:11 11/05/18 07:11 11/05/18 07:11 11/05/18 07:11 11/05/18 07:11 - General well developed, well nourished, no distress - Eyes PERRL - ENT normal pinna - Neck no masses - Respiratory normal expansion - Cardiovascular Rhythm: regular - Abdomen Abdomen: soft, non tender Assessment and Plan Assessment: History of GI bleed. We'll perform colonoscopy.
--- NOTE | 2018-11-05 08:09 | P.OP ---
Date of Procedure: 11/05/18 Preoperative Diagnosis: GI bleed Postoperative Diagnosis: Internal hemorrhoids to Left colon biopsy pathology pending, possible colitis Procedure(s) Performed: Colonoscopy Anesthesia: MAC Surgeon: Ryan Pedroza Pathology: other (Left colon) Condition: stable Disposition: PACU Description of Procedure: The patient's placed on the endoscopy table lateral position. She received IV sedation. Digital rectal exam was performed which revealed internal hemorrhoids.. Flexible colonoscope was then placed patient anus and passed throughout the colon. The ileocecal valve was visually's. The cecum, ascending and transverse colon appeared normal. In the descending colon there was a small area of erythema of the colon. This is suspicious for mild colitis. A biopsies performed. The scope was withdrawn remainder the descending and sigmoid colon appeared normal. Scope was then brought back the rectum and this was normal. The scope was withdrawn for patient.
[2018-11-05 08:16] VITALS: RESP 16
[2018-11-05 08:31] VITALS: BP 112/76; PULSE 80
== END 2018-11-05 09:07 | disposition home or self-care (01) ==
LOC: ORWHC2ENDO 06:57
PROVIDERS: ATTEND Surgery
DX: K63.5 Polyp of colon (principal); K64.8 Other hemorrhoids; K92.2 Gastrointestinal hemorrhage, unspecified; F17.200 Nicotine dependence, unspecified, uncomplicated; J45.909 Unspecified asthma, uncomplicated; K21.9 Gastro-esophageal reflux disease without esophagitis; Z82.49 Family history of ischemic heart disease and other diseases of the circulatory system; Z85.43 Personal history of malignant neoplasm of ovary
CPT/HCPCS: 81025; 88305; 45380; J2250; J3010; J2704

== ENCOUNTER → 2018-11-19 | Outpatient (CLI) | payer OTHER ==
--- NOTE | 2018-11-19 14:52 | FL ---
EXAMINATION TYPE: FL barium swallow DATE OF EXAM: 11/19/2018 CLINICAL INDICATION: 33-year-old female recurrent GERD. History of hiatal hernia repair years ago. COMPARISON: Correlation CT 09/28/2018 Total Fluoroscopy Time: 52 seconds Total images: 23. FINDINGS: The swallowing mechanism is normal and hypopharyngeal anatomy is preserved. The cervical and thoracic portions have a normal course and caliber and normal motility. The mucosa i s normal and no persistent filling defect is encountered. Postsurgical changes of Booker fundoplication with a slipped wrap demonstrated located above the diap hragm. There is a moderate to large sized hiatal hernia. IMPRESSION: Slipped wrap with recurrent moderate to large sized hiatal hernia.
== END ==
LOC: RADFLWHC 09:33
PROVIDERS: ATTEND Surgery
DX: K44.9 Diaphragmatic hernia without obstruction or gangrene (principal)
CPT/HCPCS: 74220

== ENCOUNTER → 2018-11-21 | Outpatient (CLI) | payer OTHER ==
[2018-11-21 14:00] LABS: Basophils # (A) 0.1 k/uL (0-0.2); Basophils % (A) 1 %; Eosinophils # (A) 0.4 k/uL (0-0.7); Eosinophils % (A) 6 %; HGB 13.5 gm/dL (11.4-16.0); Lymphocytes # (A) 2.7 k/uL (1.0-4.8); Lymphocytes % (A) 37 %; MCH 28.7 pg (25.0-35.0); MCHC 31.4 g/dL (31.0-37.0); MCV 91.7 fL (80.0-100.0); Mean Platelet Volume 7.3; Monocytes # (A) 0.3 k/uL (0-1.0); Monocytes % (A) 4 %; Neutrophils # (A) 3.8 k/uL (1.3-7.7); Neutrophils % (A) 51 %; Platelet Count 220 k/uL (150-450); RBC 4.68 m/uL (3.80-5.40); RDW 12.9 % (11.5-15.5); WBC 7.4 k/uL (3.8-10.6)
== END ==
LOC: LABPAT 12:22
PROVIDERS: ATTEND Surgery
DX: Z01.812 Encounter for preprocedural laboratory examination (principal); K21.0 Gastro-esophageal reflux disease with esophagitis; R13.10 Dysphagia, unspecified
CPT/HCPCS: 36415; 85025

== ENCOUNTER 2018-11-22 07:46 | Day surgery (SDC) | payer OTHER ==
[2018-11-21 10:19] VITALS: BMI 34.4
[2018-11-22 08:12] VITALS: TEMP 97.6
--- NOTE | 2018-11-22 09:20 | P.GSHP ---
History of Present Illness H&P Date: 11/22/18 Chief Complaint: GERD, dysphagia Is a 33-year-old female who was a safer EGD. She's had issues with recurrent GERD and dysphagia. Her recent esophagram shows a recurrent hiatal hernia. Past Medical History Past Medical History: Asthma, Cancer, GERD/Reflux, Skin Disorder Additional Past Medical History / Comment(s): hx rt ovarian cancer, hiatal hernia, varicose vein, currently has cyst on left ovary, blood in stool on and off since December 2017, eczema, hx gestational diabetes, hs bronchial spasms, DDD , bulging disks, gallstone History of Any Multi-Drug Resistant Organisms: None Reported Past Surgical History: Cholecystectomy, Hernia Repair Additional Past Surgical History / Comment(s): laproscopic surgery for rt ovarian cancer to remove cyst, hiatal hernia repair, colonsocopy, D&C, EGD Past Anesthesia/Blood Transfusion Reactions: Previous Problems w/ Anesthesia Additional Past Anesthesia/Blood Transfusion Reaction / Comment(s): had bronchial spasm with previous EKG approx 3 yrs ago, procedure had to be canceled per pt, anesthesia record printed and added to chart Past Psychological History: No Psychological Hx Reported Smoking Status: Current every day smoker Past Alcohol Use History: None Reported Additional Past Alcohol Use History / Comment(s): STARTED SMOKING AT AGE 18 SMOKES < 1/2 PPD Past Drug Use History: Marijuana Additional Drug Use History / Comment(s): USES MARIJUANA OCC - Past Family History Mother Family Medical History: No Reported History Medications and Allergies Home Medications Medication Instructions Recorded Confirmed Type No Known Home Medications 10/31/18 11/21/18 History Allergies Allergy/AdvReac Type Severity Reaction Status Date / Time No Known Allergies Allergy Verified 11/21/18 10:56 Surgical - Exam Vital Signs Temp Pulse Resp BP Pulse Ox 97.6 F 76 18 123/56 97 11/22/18 08:07 11/22/18 08:07 11/22/18 08:07 11/22/18 08:07 11/22/18 08:07 - General well developed, no distress - Eyes PERRL - ENT normal pinna - Neck no masses - Respiratory normal expansion - Cardiovascular Rhythm: regular - Abdomen Abdomen: soft, non tender Assessment and Plan Assessment: GERD Recurrent hiatal hernia. We'll perform EGD.
--- NOTE | 2018-11-22 09:27 | P.OP ---
Date of Procedure: 11/22/18 Preoperative Diagnosis: GERD Postoperative Diagnosis: Recurrent hiatal hernia Esophagitis Antral gastritis Procedure(s) Performed: EGD Anesthesia: MAC Surgeon: Ryan Pedroza Pathology: other (Antrum,) Condition: stable Description of Procedure: The patient's placed on the endoscopy table in the lateral position. She received IV sedation. The gastroscope placed oropharynx passed in the esophagus and into the stomach. Scope was then placed through the pylorus. First and second portion of the duodenum appeared normal. Scope was then brought back the antrum and this appeared mildly inflamed. A biopsies performed. Scope was then retroflexed and there was a large recurrent hiatal hernia. The GE junction was at 35 cm. The distal esophagus appeared inflamed a photograph was taken. The scope was then brought back the proximal esophagus appeared normal. Scope was withdrawn for patient.
[2018-11-22 09:43] VITALS: RESP 16
[2018-11-22 10:05] VITALS: BP 101/67; PULSE 66
== END 2018-11-22 10:46 | disposition home or self-care (01) ==
LOC: ORWHC2ENDO 07:46
PROVIDERS: ATTEND Surgery
DX: K29.50 Unspecified chronic gastritis without bleeding (principal); K21.0 Gastro-esophageal reflux disease with esophagitis; K44.9 Diaphragmatic hernia without obstruction or gangrene; Z87.19 Personal history of other diseases of the digestive system; J44.9 Chronic obstructive pulmonary disease, unspecified; N83.202 Unspecified ovarian cyst, left side; I83.90 Asymptomatic varicose veins of unspecified lower extremity; L30.9 Dermatitis, unspecified; Z85.43 Personal history of malignant neoplasm of ovary; F17.210 Nicotine dependence, cigarettes, uncomplicated
CPT/HCPCS: 43239; 81025; 88305

== ENCOUNTER 2018-11-26 08:41 | Day surgery (SDC) | payer OTHER ==
[2018-11-21 11:06] VITALS: BMI 34.4
[~2018-11-26 08:41] MED LIST changes: +DEXAMETHASONE SOD PHOSPHATE 10 MG/ML 1 ML VIAL IV ONE; +HEPARIN SODIUM,PORCINE 5,000 UNIT/ML 1 ML VIAL SQ ONE; +HYDROmorphone 0.5 MG/0.5 ML SYRINGE IVP PRN; +LIDOCAINE 1% INJ 10MG/ML (20 ML MDV) ONE; +MIDAZOLAM 2 MG/2 ML VIAL IV PRN; +ONDANSETRON 4 MG/2 ML VIAL IVP ONE; +PROPOFOL 10 MG/ML 20 ML VIAL IV ONE; +ceFAZolin IN SWFI 2 GM/20 ML SYRINGE IVP ONE; +fentaNYL (PF) 50 MCG/ML 2 ML AMP IV PRN
--- NOTE | 2018-11-26 10:12 | P.GSHP ---
History of Present Illness H&P Date: 11/26/18 Chief Complaint: GERD, dysphagia This is a 33-year-old female who presents today for laparoscopic repair of recurrent hiatal hernia. Patient is developed recurrent GERD symptoms. She underwent esophagram showed evidence of recurrent hiatal hernia and possible slipped fundoplication. Past Medical History Past Medical History: Asthma, Cancer, GERD/Reflux, Skin Disorder Additional Past Medical History / Comment(s): hx rt ovarian cancer, hiatal hernia, varicose vein, currently has cyst on left ovary, blood in stool on and off since December 2017, eczema, hx gestational diabetes, hs bronchial spasms, DDD , bulging disks, gallstone History of Any Multi-Drug Resistant Organisms: None Reported Past Surgical History: Cholecystectomy, Hernia Repair Additional Past Surgical History / Comment(s): laproscopic surgery for rt ovarian cancer to remove cyst, hiatal hernia repair, colonsocopy, D&C, EGD Past Anesthesia/Blood Transfusion Reactions: Previous Problems w/ Anesthesia Additional Past Anesthesia/Blood Transfusion Reaction / Comment(s): had bronchial spasm with previous EGD approx 3 yrs ago, procedure had to be canceled per pt, anesthesia record printed and added to chart Past Psychological History: No Psychological Hx Reported Smoking Status: Current every day smoker Past Alcohol Use History: None Reported Additional Past Alcohol Use History / Comment(s): STARTED SMOKING AT AGE 18 SMOKES < 1/2 PPD Past Drug Use History: Marijuana Additional Drug Use History / Comment(s): USES MARIJUANA OCC - Past Family History Mother Family Medical History: No Reported History Medications and Allergies Home Medications Medication Instructions Recorded Confirmed Type No Known Home Medications 10/31/18 11/26/18 History Allergies Allergy/AdvReac Type Severity Reaction Status Date / Time No Known Allergies Allergy Verified 11/26/18 09:33 Surgical - Exam Vital Signs Temp Pulse Resp BP Pulse Ox 99.0 F 98 16 106/76 96 11/26/18 09:26 11/26/18 09:26 11/26/18 09:26 11/26/18 09:26 11/26/18 09:26 - General well developed, well nourished, no distress - Eyes PERRL - ENT normal pinna - Neck no masses - Respiratory normal expansion - Cardiovascular Rhythm: regular - Abdomen Abdomen: soft, non tender Assessment and Plan Assessment: GERD, dysphagia. We'll perform laparoscopic repair of recurrent hiatal hernia.
[2018-11-26] MEDS ORDERED: NEOSTIGMINE 1 MG/ML 10 ML VIAL ONE (10:22)
[2018-11-26] MEDS ORDERED: ROCURONIUM BROMIDE 10 MG/ML 10 ML VIAL IV ONE (10:22)
[2018-11-26] MEDS ORDERED: GLYCOPYRROLATE 0.2 MG/ML 2 ML VIAL ONE (10:22)
[2018-11-26] MEDS ORDERED: MIDAZOLAM 2 MG/2 ML VIAL ONE (10:22)
[2018-11-26] MEDS ORDERED: ALBUTEROL INHALER 60 PUFF/8 GM INHALER INHALATION ONE (10:22)
[2018-11-26] MEDS ORDERED: PROPOFOL 10 MG/ML 20 ML VIAL IV ONE (10:22)
[2018-11-26] MEDS ORDERED: HYDROmorphone (PF) 1 MG/ML ONE (10:22)
[2018-11-26] MEDS ORDERED: ePHEDrine SULFATE/0.9% NACL/PF 50 MG/5 ML SYRINGE IV ONE (10:22)
[2018-11-26] MEDS ORDERED: LIDOCAINE 1% INJ 10MG/ML (20 ML MDV) ONE (10:22)
[2018-11-26] MEDS ORDERED: fentaNYL (PF) 50 MCG/ML 2 ML AMP ONE (10:22)
[2018-11-26] MEDS ORDERED: BUPIVACAIN-EPI 0.5%-1:200,000 30 ML VIAL SQ ONE (10:55)
[2018-11-26] MEDS ORDERED: LACTATED RINGERS 1,000 ML IV ONE ×2 (11:21)
[2018-11-26] MEDS ORDERED: HYDROmorphone 1 MG/ML 1 ML SYRINGE IVP PRN (11:34)
--- NOTE | 2018-11-26 11:40 | P.OP ---
Date of Procedure: 11/26/18 Preoperative Diagnosis: Recurrent hiatal hernia Postoperative Diagnosis: Recurrent hiatal hernia with paraesophageal herniation of stomach Procedure(s) Performed: Laparoscopic lysis of adhesions Laparoscopic repair of hiatal hernia with mesh 180 fundoplication Anesthesia: EVELINE Surgeon: Ryan Pedroza Estimated Blood Loss (ml): 5 Pathology: none sent Condition: stable Disposition: PACU Description of Procedure: The patient's placed on the operative table in the supine position. She received general anesthesia.. She was placed in dorsal 5 position. Her abdomen was prepped and draped in usual sterile fashion. The skin incision sites were anesthetized 1% local Xylocaine. Using a 5 mm optical trocar under direct visualization panel cavity was entered in the left. Local area. The abdomen was insufflated. After adequate insufflation the laparoscope placed back the pleural cavity. Next a 5 mm trochars placed in the left epigastric, right epigastric, right lateral and left lateral position. The left lateral lobe liver was retracted. The patient had a large recurrent hiatal hernia. Adhesions to the stomach were lysed using sharp dissection and then the stomach was reduced back into the peritoneal cavity. The fundoplication wrap was taken down. With sharp dissection. The crural defect was then dissected and then closed with 2-0 Ethibond suture. A piece of [place] a mesh was placed over top the repair and secured with 2-0 Ethibond suture. A 58-Slovenian bougie does placed into the esophagus and into the stomach. There is no evidence of any obstruction. A 180 posterior fundal plication wrap was performed. The secured with 2-0 Ethibond suture. There is no evidence of injury to the stomach or esophagus. There is no bleeding seen. The trochars withdrawn. Skin was closed interrupted 3-0 Monocryl suture. Dermabond was applied. Patient tolerated the procedure well and was will was sent to recovery in stable condition.
[2018-11-26] MEDS ORDERED: D5-0.45% NACL WITH KCL 20MEQ/L 1,000 ML IV SCH (12:00)
[2018-11-26] MEDS: MEPERIDINE 50 MG/ML SYRINGE IVP ONE ×2 (12:03→12:08)
[2018-11-26] MEDS: KETOROLAC 30 MG/ML 1 ML VIAL IVP PRN ×2 (15:18→21:41)
[2018-11-26 20:41] VITALS: BP 136/74; PULSE 76; RESP 18; TEMP 98.1
[2018-11-27] MEDS ORDERED: ENOXAPARIN 40 MG/0.4 ML SYRINGE SQ SCH (09:00)
== END 2018-11-26 22:20 | disposition left against medical advice (07) ==
LOC: OR 08:41 → 6PED 11:39 → OR 22:20
PROVIDERS: ATTEND Surgery
DX: K44.9 Diaphragmatic hernia without obstruction or gangrene (principal); K66.0 Peritoneal adhesions (postprocedural) (postinfection); J45.909 Unspecified asthma, uncomplicated; F17.210 Nicotine dependence, cigarettes, uncomplicated; N83.201 Unspecified ovarian cyst, right side; K21.9 Gastro-esophageal reflux disease without esophagitis; Z85.43 Personal history of malignant neoplasm of ovary
CPT/HCPCS: 86900; 86901; 86850; 43282; C1781; J1644; J1100; J2175; J2405; J2001; J1885; J2704; J0690

== ENCOUNTER → 2019-01-07 | Outpatient (CLI) | payer OTHER ==
--- NOTE | 2019-01-07 13:26 | US ---
EXAMINATION TYPE: US pelvis complete transvag DATE OF EXAM: 01/07/2019 COMPARISON: US 12/18/2017, CT 09/28/2018 CLINICAL HISTORY: R10.2 Pelvic Pain. TECHNIQUE: . Transabdominal sonographic images of the pelvis were acquired. Transvaginal sonographi c images were medically necessary to better assess the following anatomy: Uterus and ovaries Date of LMP: 7 days ago EXAM MEASUREMENTS: Uterus: 7.0 x 3.9 x 4.0 cm Endometrial Stripe: 0.5 cm Right Ovary: 3.6 x 2.0 x 2.7 cm Left Ovary: 3.3 x 1.6 x 1.8 cm 1. Uterus: Anteverted wnl 2. Endometrium: wnl 3. Right Ovary: Multiple follicles visualized 4. Left Ovary: Follicles visualized 5. Bilateral Adnexa: wnl 6. Posterior cul-de-sac: Tiny amount of free fluid visualized IMPRESSION: No suspicious finding is seen to account for patient's symptoms of pelvic pain.
== END | disposition home or self-care (01) ==
LOC: RADUSWWP 12:22
PROVIDERS: ATTEND Family Medicine
DX: R10.2 Pelvic and perineal pain (principal)
CPT/HCPCS: 76830; 76856

== ENCOUNTER → 2019-02-25 | Outpatient (CLI) | payer OTHER ==
--- NOTE | 2019-02-25 16:10 | FL ---
EXAMINATION: Cervical and Thoracic Esophagram DATE OF EXAM: 02/25/2019 CLINICAL INDICATION: 33-year-old female dysphasia and GERD, history of hiatal hernia surgery 4 years ago then revision on 11/18/2018. Trouble swallowing and shoulder pain since revision. Total fluoroscopy time: 1 minute 23 seconds. Total images: COMPARISON: 11/19/2018 and 09/28/2018 FINDINGS: The swallowing mechanism is normal and hypopharyngeal anatomy is preserved. The cervical and thoracic portions have a normal course and caliber and normal motility. The mucosa is normal and no persistent filling defect is encountered. There is mild fixed smooth circumferential narrowing at the GE junction best demonstrated on the RECINOS prone drinking images. No recurrent hiatal hernia. Visualized proximal stomach shows no evident abnormality. IMPRESSION: 1. Note that inadvertently, the study was performed as an esophagram and imaging only included down t o the proximal stomach. 2. Mild smooth circumferential narrowing at the GE junction suggests a mild postsurgical stenosis. No recurrent hiatal hernia. 3. Otherwise, no other specific abnormality is identified.
== END | disposition home or self-care (01) ==
LOC: RADFLWHC 10:09
PROVIDERS: ATTEND Surgery
DX: K22.2 Esophageal obstruction (principal); K21.0 Gastro-esophageal reflux disease with esophagitis
CPT/HCPCS: 74210

== ENCOUNTER 2019-02-28 08:02 | Day surgery (SDC) | payer OTHER ==
[2019-02-26 14:04] VITALS: BMI 36.0
[~2019-02-28 08:02] MED LIST changes: -DEXAMETHASONE SOD PHOSPHATE 10 MG/ML 1 ML VIAL IV ONE; -HEPARIN SODIUM,PORCINE 5,000 UNIT/ML 1 ML VIAL SQ ONE; -HYDROmorphone 0.5 MG/0.5 ML SYRINGE IVP PRN; -LIDOCAINE 1% INJ 10MG/ML (20 ML MDV) ONE; -MIDAZOLAM 2 MG/2 ML VIAL IV PRN; -ONDANSETRON 4 MG/2 ML VIAL IVP ONE; -PROPOFOL 10 MG/ML 20 ML VIAL IV ONE; -ceFAZolin IN SWFI 2 GM/20 ML SYRINGE IVP ONE; -fentaNYL (PF) 50 MCG/ML 2 ML AMP IV PRN
[2019-02-28 08:34] VITALS: TEMP 97.8
[2019-02-28] MEDS ORDERED: LACTATED RINGERS 1,000 ML IV ONE (08:34)
[2019-02-28] MEDS ORDERED: IPRATROPIUM-ALBUTEROL 3 ML NEB INHALATION STA (08:35)
[2019-02-28] MEDS ORDERED: MIDAZOLAM 2 MG/2 ML VIAL ONE (09:06)
[2019-02-28] MEDS ORDERED: PROPOFOL 10 MG/ML 20 ML VIAL IV ONE (09:06)
[2019-02-28] MEDS ORDERED: fentaNYL (PF) 50 MCG/ML 2 ML AMP ONE (09:06)
--- NOTE | 2019-02-28 09:17 | P.GSHP ---
History of Present Illness H&P Date: 02/28/19 Chief Complaint: GERD, dysphagia This is a 33-year-old female who presents today for EGD. She's had complaints of GERD and dysphagia. Past Medical History Past Medical History: Asthma, Cancer, GERD/Reflux, Skin Disorder Additional Past Medical History / Comment(s): severe pain radiating to left should when swallowing,hx chronic lower back pain,rt ovarian cancer, hiatal hernia, varicose vein, currently has cyst on left ovary, blood in stool on and off since December 2017, eczema, hx gestational diabetes, bronchial spasms, DDD, bulging disks, gallstone History of Any Multi-Drug Resistant Organisms: None Reported Past Surgical History: Cholecystectomy, Hernia Repair Additional Past Surgical History / Comment(s): laproscopic surgery for rt ovarian cancer to remove cyst, hiatal hernia repair x2, colonsocopy, D&C, EGD Past Anesthesia/Blood Transfusion Reactions: Previous Problems w/ Anesthesia Additional Past Anesthesia/Blood Transfusion Reaction / Comment(s): had bronchial spasm with previous EGD approx 3 yrs ago, procedure had to be canceled per pt, anesthesia record printed and added to chart. No hx blood transfusion Smoking Status: Current every day smoker - Past Family History Mother Family Medical History: No Reported History Medications and Allergies Home Medications Medication Instructions Recorded Confirmed Type Acetaminophen-Codeine 300-30mg 1 tab PO TID PRN 02/26/19 02/26/19 History [Tylenol w/codeine #3] Albuterol Sulfate [Proair Hfa] 1 - 2 puff INHALATION Q6HR PRN 02/26/19 02/26/19 History Ibuprofen [Motrin] 800 mg PO TID PRN 02/26/19 02/26/19 History Allergies Allergy/AdvReac Type Severity Reaction Status Date / Time No Known Allergies Allergy Verified 02/26/19 13:49 Surgical - Exam Vital Signs Temp Pulse Resp BP Pulse Ox 97.8 F 83 18 127/68 98 02/28/19 08:32 02/28/19 08:32 02/28/19 08:32 02/28/19 08:32 02/28/19 08:32 - General well developed, well nourished, no distress - Eyes PERRL - ENT normal pinna - Neck no masses - Respiratory normal expansion - Cardiovascular Rhythm: regular - Abdomen Abdomen: soft, non tender Assessment and Plan Assessment: GERD, dysphagia. We'll perform EGD and colonoscopy.
--- NOTE | 2019-02-28 09:26 | P.OP ---
Date of Procedure: 02/28/19 Preoperative Diagnosis: Dysphagia Postoperative Diagnosis: Mild GE junction stricture Procedure(s) Performed: EGD Anesthesia: MAC Surgeon: Ryan Pedroza Pathology: other (Antrum) Condition: stable Disposition: PACU Description of Procedure: The patient's placed on the endoscopy table in the lateral position. She received IV sedation. The gastroscope placed oropharynx and passed into the esophagus and into the stomach. Scope was then placed through the pylorus. First and second portion of duodenum appeared normal. Scope was then brought back the antrum and this appeared mildly inflamed. A biopsies performed. Scope was unretroflexed and remainder the stomach appeared normal. There was no s ignificant hiatal hernia. Scope was brought back slowly GE junction. There was no obvious stricture seen. A 20 mm balloon was placed across the area of the GE junction. The balloon was inflated held in position for 3 minutes. The balloon was able be passed freely at the GE junction. This was insufflated. The scope was withdrawn. Esophagus appeared normal. Scope was withdrawn for patient.
[2019-02-28 09:47] VITALS: BP 121/87; PULSE 70; RESP 18
== END 2019-02-28 10:20 | disposition home or self-care (01) ==
LOC: ORWHC2ENDO 08:02
PROVIDERS: ATTEND Surgery
DX: K22.2 Esophageal obstruction (principal); K29.50 Unspecified chronic gastritis without bleeding; J45.909 Unspecified asthma, uncomplicated; Z85.43 Personal history of malignant neoplasm of ovary; G89.29 Other chronic pain; M54.5 Low back pain; F17.200 Nicotine dependence, unspecified, uncomplicated; Z79.891 Long term (current) use of opiate analgesic; Z79.899 Other long term (current) drug therapy
CPT/HCPCS: 94640; 81025; 88305; 43239; 43249; J2250; J3010; J2704

== ENCOUNTER → 2019-05-03 | Outpatient (CLI) | payer OTHER ==
[2019-05-03 14:35] LABS: Basophils # (A) 0.1 k/uL (0-0.2); Basophils % (A) 1 %; Eosinophils # (A) 0.3 k/uL (0-0.7); Eosinophils % (A) 4 %; HCT 43.6 % (34.0-46.0); HGB 14.1 gm/dL (11.4-16.0); Lymphocytes # (A) 2.6 k/uL (1.0-4.8); Lymphocytes % (A) 31 %; MCH 29.5 pg (25.0-35.0); MCHC 32.4 g/dL (31.0-37.0); Mean Platelet Volume 8.2; Monocytes # (A) 0.4 k/uL (0-1.0); Monocytes % (A) 4 %; Neutrophils % (A) 58 %; Platelet Count 219 k/uL (150-450); RBC 4.79 m/uL (3.80-5.40); RDW 13.4 % (11.5-15.5); WBC 8.5 k/uL (3.8-10.6)
== END | disposition home or self-care (01) ==
LOC: LABPAT 14:20
PROVIDERS: ATTEND Obstetrics & Gynecology
DX: Z01.812 Encounter for preprocedural laboratory examination (principal)
CPT/HCPCS: 36415; 85025

== ENCOUNTER 2019-05-13 06:31 | Day surgery (SDC) | payer OTHER ==
[2019-05-09 09:58] VITALS: BMI 31.3
--- NOTE | 2019-05-12 16:27 | P.HPOB ---
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 Her Pap smear result showed low-grade squamous intraepithelial lesion with negative high risk HPV. Colposcopy was performed on 03/27/2019 and biopsy showed HORACE-1 and HORACE-2. The HORACE-2 was located at the 2:00 biopsy in the HORACE-1 was located at the 10 o'clock position. Endocervical curettings were insufficient for diagnosis. Patient has elected the above procedure to definitively treat this problem. Obstetrical history: . History of 1 vaginal delivery at 34 weeks. History of 1 miscarriage. Gynecologic history: No history of sexual transmitted diseases. Social history: She is . 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 Review of Systems Constitutional: Denies chills, Denies fever Eyes: bilateral blurred vision (Occasional) Ears, nose, mouth and throat: Denies headache, Denies sore throat Cardiovascular: Denies chest pain, Denies shortness of breath Respiratory: Denies cough Gastrointestinal: Reports abdominal pain (Occasional) Menstruation: Reports period normal Musculoskeletal: Reports low back pain Integumentary: Denies pruritus, Denies rash Neurological: Denies numbness, Denies weakness Psychiatric: Denies anxiety, Denies depression Past Medical History Past Medical History: GERD/Reflux, Skin Disorder Additional Past Medical History / Comment(s): hx rt ovarian borderline tumor, hiatal hernia, varicose veins, blood in stool on and off since December 2017, eczema, hx gestational diabetes, hs bronchial spasms, DDD, bulging disks, gallstones. History of Any Multi-Drug Resistant Organisms: None Reported Past Surgical History: Cholecystectomy, Hernia Repair Additional Past Surgical History / Comment(s): laproscopic right ovarian cys tectomy for borderline tumor-November 2014, hiatal hernia repair 2, colonsocopy, D&C, EGD Past Anesthesia/Blood Transfusion Reactions: Previous Problems w/ Anesthesia Additional Past Anesthesia/Blood Transfusion Reaction / Comment(s): had bronchial spasm with previous EKG approx 3 yrs ago, procedure had to be canceled per pt, anesthesia record printed and added to chart Past Psychological History: No Psychological Hx Reported Smoking Status: Current every day smoker Past Alcohol Use History: None Reported Past Drug Use History: None Reported - Past Family History Mother Family Medical History: Hypertension Additional Family Medical History / Comment(s): Brain aneurysm Medications and Allergies Home Medications Medication Instructions Recorded Confirmed Type Albuterol Sulfate [Proair Hfa] 1 - 2 puff INHALATION Q6HR PRN 02/26/19 05/09/19 History Allergies Allergy/AdvReac Type Severity Reaction Status Date / Time No Known Allergies Allergy Verified 05/09/19 09:36 Exam Osteopathic Statement: *. No significant issues noted on an osteopathic structural exam other than those noted in the History and Physical/Consult. HEENT: Within normal limits Heart: Regular rate and rhythm Lungs: Clear to auscultation bilaterally Abdomen: Soft, nontender Pelvic exam: Uterus is anteverted, nontender, with no adnexal masses or tenderness palpated. Extremities: Negative Homans Assessment and Plan (1) HORACE II (cervical intraepithelial neoplasia II) Status: Acute Code(s): N87.1 - MODERATE CERVICAL DYSPLASIA SNOMED Code(s): 161866371 Plan: Proceed with colposcopy and loop electrocautery excision procedure. I have discussed the risks, benefits, and alternative therapies for the above- mentioned procedure and for both sedation/anesthesia as well as necessary blood products administration, if indicated, as they pertain to this patient. The patient has indicated her understanding and acceptance of the risks and procedures discussed.
[~2019-05-13 06:31] MED LIST changes: +DEXAMETHASONE SOD PHOSPHATE 10 MG/ML 1 ML VIAL IV ONE; +HYDROmorphone 0.5 MG/0.5 ML SYRINGE IVP PRN; +ONDANSETRON 4 MG/2 ML VIAL IVP ONE; +Pre Op ABX Message 1 EACH MISC MISCELLANE ONE; +SCOPOLAMINE 1.5MG/72HR PATCH TRANSDERM ONE
[2019-05-13 07:20] VITALS: RESP 16
[2019-05-13] MEDS ORDERED: KETOROLAC 30 MG/ML 1 ML VIAL ONE (07:34)
[2019-05-13] MEDS ORDERED: PROPOFOL 10 MG/ML 20 ML VIAL IV ONE (07:34)
[2019-05-13] MEDS ORDERED: LIDOCAINE 1% INJ 10MG/ML (20 ML MDV) ONE (07:34)
[2019-05-13] MEDS ORDERED: fentaNYL (PF) 50 MCG/ML 2 ML AMP ONE (07:34)
[2019-05-13] MEDS ORDERED: MIDAZOLAM 2 MG/2 ML VIAL ONE (07:34)
[2019-05-13] MEDS ORDERED: LIDOCAINE 1%-EPI 1:100,000 20 ML VIAL SQ ONE ×2 (07:58)
[2019-05-13] MEDS ORDERED: ACETIC ACID 15 DROPS/ML DROPS MISCELLANE ONE (07:58)
[2019-05-13] MEDS ORDERED: FERRIC SUBSULFATE (MONSELS) JAR TOPICAL ONE (07:58)
[2019-05-13] MEDS ORDERED: BUPIVACAINE (PF) 0.5% 30 ML VIAL SQ ONE ×2 (07:58)
[2019-05-13] MEDS ORDERED: IODINE/POTASS IOD (LUGOLS) 8 ML BTL TOPICAL ONE (07:58)
--- NOTE | 2019-05-13 08:10 | P.OP ---
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 Her Pap smear result showed low-grade squamous intraepithelial lesion with negative high risk HPV. Colposcopy was performed on 03/27/2019 and biopsy showed HORACE-1 and HORACE-2. The HORACE-2 was located at the 2:00 biopsy in the HORACE-1 was located at the 10 o'clock position. Endocervical curettings were insufficient for diagnosis. Patient has elected the above procedure to definitively treat this problem. Operative Findings: Transition zone is completely visualized with acetic acid and Lugol solution. No specific abnormalities are noted with acetic acid. There is a Lugol white area at the 10:00 border that is separate from the transition zone. No other abnormalities are visualized. Description of Procedure: The patient is taken to the operating room where she is placed in the dorsal lithotomy position. She is prepped and draped in the normal sterile fashion. Her bladder is drained with a catheter. Examination is performed under anesthesia. Uterus is found to be mid position with no adnexal masses palpated. Next a coated bivalve speculum was placed in the patient's vagina. Colposcopy is then performed using a blue light. Cervix is swabbed with 5% acetic acid. The above noted findings are noted. Cervix is swabbed with Lugol solution. A gain the above noted findings are made. Next the cervix was injected with a 50- 50 mixture of half percent Marcaine and 1% lidocaine with epinephrine. Approximately 6 mL are used using a spinal needle to inject circumferentially around the cervix. Next a large running loop was used with 35 W of cutting power to swipe from left to right on the top part of the transition zone. Next the same procedure is carried out on the bottom part of the transition zone. The 12 o'clock position is then marked with a white suture and the 6 o'clock position is marked with a black suture for orientation. The bed left behind is then cauterized with ball-tipped cautery. Excellent hemostasis is noted. Monsel solution is applied. All instrument removed from the vagina. All sponge and needle counts are correct. The patient is then taken to recovery room in stable condition.
[2019-05-13 08:19] VITALS: TEMP 97.6
[2019-05-13] MEDS ORDERED: LACTATED RINGERS 1,000 ML IV ONE (09:00)
[2019-05-13 09:54] VITALS: BP 120/82; PULSE 69
== END 2019-05-13 10:03 | disposition home or self-care (01) ==
LOC: OR 06:31
PROVIDERS: ATTEND Obstetrics & Gynecology
DX: N87.9 Dysplasia of cervix uteri, unspecified (principal); K21.9 Gastro-esophageal reflux disease without esophagitis; I83.90 Asymptomatic varicose veins of unspecified lower extremity; F17.200 Nicotine dependence, unspecified, uncomplicated; L30.9 Dermatitis, unspecified; J98.01 Acute bronchospasm; Z90.49 Acquired absence of other specified parts of digestive tract; Z82.49 Family history of ischemic heart disease and other diseases of the circulatory system
CPT/HCPCS: 81025; 88307; 84703; 57461; J2250; J1100; J2405; J2001; J3010; J1885; J2704

== ENCOUNTER 2019-06-17 04:50 | Emergency (ER) | payer OTHER ==
[2019-06-17 05:05] VITALS: RESP 18
[2019-06-17] MEDS ORDERED: predniSONE 20 MG TAB PO STA (05:11)
[2019-06-17] MEDS ORDERED: FAMOTIDINE 20 MG TAB PO STA (05:11)
[2019-06-17] MEDS ORDERED: diphenhydrAMINE 50 MG CAP PO STA (05:11)
--- NOTE | 2019-06-17 05:15 | ED ---
Allergic Reaction HPI - General Chief complaint: Allergic Reaction Stated complaint: Eye swelling Time Seen by Provider: 06/17/19 05:03 Source: patient Mode of arrival: ambulatory Limitations: no limitations - History of Present Illness Initial Comments: This patient is a 34-year-old woman who presents with complaint that she believes she is having ALLERGIC reaction. Patient states that around midnight, she noticed she was starting to get some mild itching and burning to the right side of her face. Over the next hour to 2 she knows she was developing a little bit of swelling of the right eyelids. The patient states that she had received a new plant from her mother and had pod this. Patient denies nausea vomiting or diarrhea. Patient denies cough, wheezing, dyspnea. No tongue swelling. MD Complaint: facial swelling Onset/Timin -: hour(s) Exposure: plant Symptoms: rash, facial swelling Severity: moderate Treatment Prior to Arrival: none Previous Allergy History: none - Related Data Home Medications Medication Instructions Recorded Confirmed Albuterol Sulfate [Proair Hfa] 1 - 2 puff INHALATION Q6HR PRN 02/26/19 05/13/19 Previous Rx's Medication Instructions Recorded Famotidine [Pepcid] 20 mg PO BID #14 tablet 06/17/19 predniSONE 20 mg PO BID #8 tab 06/17/19 Allergies Allergy/AdvReac Type Severity Reaction Status Date / Time No Known Allergies Allergy Verified 05/13/19 06:48 Review of Systems ROS Statement: Those systems with pertinent positive or pertinent negative responses have been documented in the HPI. ROS Other: All systems not noted in ROS Statement are negative. Constitutional: Denies: fever, chills Eyes: Denies: eye pain, vision change ENT: Denies: throat pain, congestion Respiratory: Denies: cough, dyspnea Gastrointestinal: Denies: vomiting, diarrhea Skin: Reports: as per HPI, rash Neurological: Denies: headache, weakness, numbness Past Medical History Past Medical History: Asthma, Cancer, GERD/Reflux, Skin Disorder Additional Past Medical History / Comment(s): hx rt ovarian cancer, hiatal hernia, varicose vein, currently has cyst on left ovary, blood in stool on and off since December 2017, eczema, hx gestational diabetes, hs bronchial spasms, DDD, bulging disks, gallstone History of Any Multi-Drug Resistant Organisms: None Reported Past Surgical History: Cholecystectomy, Hernia Repair Additional Past Surgical History / Comment(s): laproscopic surgery for rt ovarian cancer to remove cyst, hiatal hernia repair, colonsocopy, D&C, EGD Past Anesthesia/Blood Transfusion Reactions: Previous Problems w/ Anesthesia Additional Past Anesthesia/Blood Transfusion Reaction / Comment(s): had bronchial spasm with previous EKG approx 3 yrs ago, procedure had to be canceled per pt, anesthesia record printed and added to chart Past Psychological History: No Psychological Hx Reported Past Drug Use History: Marijuana - Past Family History Mother Family Medical History: Hypertension General Exam Limitations: no limitations General appearance: alert, in no apparent distress Head exam: Present: atraumatic, normocephalic Eye exam: Present: PERRL, EOMI, periorbital swelling (Mild edema right lids). Absent: scleral icterus, conjunctival injection ENT exam: Present: normal oropharynx, mucous membranes moist Neck exam: Present: normal inspection, full ROM. Absent: meningismus, lymphadenopathy Respiratory exam: Present: wheezes (Trace expiratory wheeze). Absent: respiratory distress, rales, rhonchi, stridor Cardiovascular Exam: Present: regular rate, normal rhythm, normal heart sounds. Absent: systolic murmur, diastolic murmur, rubs, gallop GI/Abdominal exam: Present: soft. Absent: tenderness Neurological exam: Present: alert Skin exam: Present: warm, dry, intact, normal color, urticaria (Right face). Absent: rash Course Vital Signs 06/17/19 06/17/19 04:56 05:04 Temperature 97.8 F Pulse Rate 79 Respiratory 19 18 Rate Blood Pressure 145/71 O2 Sat by Pulse 98 Oximetry Disposition Clinical Impression: Allergic reaction Disposition: HOME SELF-CARE Condition: Good Instructions (If sedation given, give patient instructions): General Allergic Reaction (ED) Prescriptions: Famotidine [Pepcid] 20 mg PO BID #14 tablet predniSONE 20 mg PO BID #8 tab Is patient prescribed a controlled substance at d/c from ED?: No Referrals: Srinivasan Cohen MD [Primary Care Provider] - 1-2 days
[2019-06-17 06:15] VITALS: BP 117/70; PULSE 68; TEMP 98
== END 2019-06-17 06:20 | disposition home or self-care (01) ==
LOC: EC 04:50
DX: T78.40XA Allergy, unspecified, initial encounter (principal); J45.909 Unspecified asthma, uncomplicated; Z85.43 Personal history of malignant neoplasm of ovary; Z79.899 Other long term (current) drug therapy
CPT/HCPCS: 99283; J7512

== ENCOUNTER → 2025-03-17 | Outpatient (CLI) | payer OTHER ==
--- NOTE | 2025-03-17 16:14 | US ---
EXAMINATION TYPE: US transvaginal DATE OF EXAM: 03/17/2025 COMPARISON: 01/07/2019 CLINICAL INDICATION: Female, 39 years old with history of R10.2 PELVIC AND PERINEAL PAIN; Pelvic pain x 6 months. Hx laparoscopy, cyst removed from right ovary. TECHNIQUE: Transvaginal (TV). Doppler imaging: Not performed. FINDINGS: Date of LMP: Unknown EXAM MEASUREMENTS: Uterus: 8.7 x 5.4 x 4.5 cm Endometrial Stripe: 0.85 cm Right Ovary: Possible right ovary versus other: 4.2 x 3.2 x 2.7 cm. Volume of 19.0 mL. Left Ovary: 3.3 x 1.8 x 3.1 cm 1. Uterus: Anteverted. 5 mm debris-filled cervical nabothian cysts. 2. Endometrium: 0.85 cm. 3. Right Ovary: Possible seen, see below. 4. Left Ovary: Follicles seen 5. Bilateral Adnexa: *Complex area seen in right adnexa:4.2 x 3.2 x 2.7, -question right ovary versu s other. Complex, multilocular cystic area. Cystic locules measuring up to 1.8 cm. #1: 2.1 x 1.8 x 1.6 cm. #2: 1.8 x 1.4 x 1.7 cm. 6. Posterior cul-de-sac: Appears wnl IMPRESSION: 1. Complex, multilocular cystic appearance to the right ovary with individual cysts measuring up to 1 .8 cm. Total volume of 19.0 mL. Findings may be physiologic. Follow-up ultrasound in 6-8 weeks to ass ess for involution. 2. Otherwise, no specific sonographic abnormality of the pelvis. [facility], , 03/17/2025 4:12 PM
== END | disposition home or self-care (01) ==
LOC: RADUSWWP 14:53
PROVIDERS: ATTEND Family Medicine
DX: R10.2 Pelvic and perineal pain (principal); N83.201 Unspecified ovarian cyst, right side
CPT/HCPCS: 76830